=== PATIENT | male | born 1955 | race African-American/Black ===

== ENCOUNTER 2017-10-03 08:20 | Emergency (ER) | payer OTHER ==
[~2017-10-03] VITALS: Ht 198.1 cm; Wt 111.1 kg
[~2017-10-03 08:20] MED LIST: ASPI-630 PO; ATOR20TA58 PO; FURO20TA3 PO; METO-239 PO; NIFE30TA17 PO; PSEU120T58 PO
--- NOTE | 2017-10-03 08:42 | PHYS DOC ---
Past History Past Medical History: Hypertension Past Surgical History: Other Smoking: Cigar Alcohol Use: Occasionally Drug Use: None Adult General Chief Complaint Chief Complaint: ELBOW PROBLEM HPI HPI 62-year-old male presents with left elbow pain. The patient was walking down his stairs at home last night when he caught his shoe and fell down 4 stairs. He landed onto a carpeted floor. He did not hit his head. He did not lose consciousness. Since that time he has had pain in his left anterior elbow. He was concerned that there might be something broken so he came to the ED. He is able to move the elbow. He has pain with flexion past 90 both passive and active. He denies any lacerations or swelling. He is unsure how his arm was involved in the accident. He has no other complaints. Review of Systems Review of Systems Constitutional: Denies fever or chills [] Eyes: Denies change in visual acuity, redness, or eye pain [] HENT: Denies nasal congestion or sore throat [] Respiratory: Denies cough or shortness of breath [] Cardiovascular: No additional information not addressed in HPI [] GI: Denies abdominal pain, nausea, vomiting, bloody stools or diarrhea [] : Denies dysuria or hematuria [] Musculoskeletal: left elbow pain [] Integument: Denies rash or skin lesions [] Neurologic: Denies headache, focal weakness or sensory changes [] Endocrine: Denies polyuria or polydipsia [] All other systems were reviewed and found to be within normal limits, except as documented in this note. Allergies Allergies Allergies Coded Allergies Type Severity Reaction Last Updated Verified Sulfa (Sulfonamide Antibiotics) Allergy Intermediate Unknown 10/03/17 Yes Physical Exam Physical Exam Constitutional: Well developed, well nourished, no acute distress, non-toxic appearance. [] HENT: Normocephalic, atraumatic, bilateral external ears normal, oropharynx moist, no oral exudates, nose normal. [] Eyes: PERRLA, EOMI, conjunctiva normal, no discharge. [] Neck: Normal range of motion, no tenderness, supple, no stridor. [] Cardiovascular:Heart rate regular rhythm, no murmur [] Lungs & Thorax: Bilateral breath sounds clear to auscultation [] Abdomen: Bowel sounds normal, soft, no tenderness, no masses, no pulsatile masses. [] Skin: Warm, dry, no erythema, no rash. [] Back: No tenderness, no CVA tenderness. [] Extremities: Left elbow no swelling, no abrasions or lacerations, pain with flexion greater than 90. Supination pronation normal. [] Neurologic: Alert and oriented X 3, normal motor function, normal sensory function, no focal deficits noted. [] Psychologic: Affect normal, judgement normal, mood normal. [] Current Patient Data Vital Signs Vital Signs Date Time Temp Pulse Resp B/P (MAP) Pulse Ox O2 Delivery O2 Flow Rate FiO2 10/03/17 08:27 98.4 102 16 97 Room Air EKG EKG [] Radiology/Procedures Radiology/Procedures INDICATION: Fall last night with persistent pain. TECHNIQUE: 3 views of the left elbow are submitted for review. No comparison is available. FINDINGS: There is a nondisplaced fracture of the radial head which extends intra-articular. There is displacement of fat pads compatible with effusion. There is soft tissue swelling. There is no dislocation. There is an olecranon spur. IMPRESSION: Acute traumatic nondisplaced fracture of the radial head extends intra-articular. Joint effusion. Electronically signed by: Roosevelt Hernandez MD (10/03/2017 8:50 AM) [id number][] Course & Med Decision Making Course & Med Decision Making Pertinent Labs and Imaging studies reviewed. (See chart for details) The patient has a nondisplaced, closed radial head fracture that involves the joint. His pain is well controlled without medication. We will put him in a sling and give him a referral to orthopedics. He will make an appointment with orthopedics later today if possible. [] Dragon Disclaimer Dragon Disclaimer This electronic medical record was generated, in whole or in part, using a voice recognition dictation system. Departure Departure: Referrals: KOLE STRONG (PCP) RENATA NOLAN DO October 03, 2017 08:42
--- NOTE | 2017-10-03 08:53 | RAD ---
INDICATION: Fall last night with persistent pain. TECHNIQUE: 3 views of the left elbow are submitted for review. No comparison is available. FINDINGS: There is a nondisplaced fracture of the radial head which extends intra-articular. There is displacement of fat pads compatible with effusion. There is soft tissue swelling. There is no dislocation. There is an olecranon spur. IMPRESSION: Acute traumatic nondisplaced fracture of the radial head extends intra-articular. Joint effusion. Electronically signed by: Roosevelt Hernandez MD (10/03/2017 8:50 AM) [id number]
[2017-10-03 09:25] VITALS: BP 151/100
== END 2017-10-03 09:25 | disposition home or self-care (01) ==
LOC: ER 08:20
DX: S52.125A Nondisplaced fracture of head of left radius, initial encounter for closed fracture (principal); I10 Essential (primary) hypertension; F17.210 Nicotine dependence, cigarettes, uncomplicated; Z88.2 Allergy status to sulfonamides; W10.8XXA Fall (on) (from) other stairs and steps, initial encounter; Y93.01 Activity, walking, marching and hiking; Y99.8 Other external cause status; Y92.89 Other specified places as the place of occurrence of the external cause
CPT/HCPCS: 73080; 99284

== ENCOUNTER 2017-11-24 13:49 | Emergency (ER) | payer OTHER ==
[~2017-11-24] VITALS: Ht 198.1 cm; Wt 118.4 kg
[2017-11-24] MEDS ORDERED: PRED50TA PO (14:46)
[2017-11-24] MEDS ORDERED: CLIN300C8 PO (14:46)
--- NOTE | 2017-11-24 14:46 | PHYS DOC ---
Past History Past Medical History: Hypertension Past Surgical History: Other Smoking: Cigar Alcohol Use: Occasionally Drug Use: None Adult General Chief Complaint Chief Complaint: ELBOW PROBLEM HPI HPI Patient is a very pleasant 62-year-old male who presents for evaluation of left elbow swelling and pain. He fractured his radial head on 10/03/17 and had x-ray imaging performed here. He is in the [employer] and is flying to [place] tomorrow and would like the elbow to be drained. He states his orthopedic surgeon is unavailable today. The swelling is over the olecranon process. He is able to bend the elbow without any discomfort. He denies fevers or chills. Review of Systems Review of Systems Constitutional: Denies fever or chills [] Eyes: Denies change in visual acuity, redness, or eye pain [] HENT: Denies nasal congestion or sore throat [] Respiratory: Denies cough or shortness of breath [] Cardiovascular: No additional information not addressed in HPI [] GI: Denies abdominal pain, nausea, vomiting, bloody stools or diarrhea [] : Denies dysuria or hematuria [] Musculoskeletal: Denies back pain or joint pain [] Left elbow pain/swelling Integument: Denies rash or skin lesions [] Neurologic: Denies headache, focal weakness or sensory changes [] Endocrine: Denies polyuria or polydipsia [] All other systems were reviewed and found to be within normal limits, except as documented in this note. Allergies Allergies Allergies Coded Allergies Type Severity Reaction Last Updated Verified Sulfa (Sulfonamide Antibiotics) Allergy Intermediate Unknown 10/03/17 Yes Physical Exam Physical Exam Constitutional: Well developed, well nourished, no acute distress, non-toxic appearance. [] HENT: Normocephalic, atraumatic, bilateral external ears normal, oropharynx moist, no oral exudates, nose normal. [] Eyes: PERRLA, EOMI, conjunctiva normal, no discharge. [] Neck: Normal range of motion, no tenderness, supple, no stridor. [] Cardiovascular:Heart rate regular rhythm, no murmur [] Lungs & Thorax: Bilateral breath sounds clear to auscultation [] Abdomen: Bowel sounds normal, soft, no tenderness, no masses, no pulsatile masses. [] Skin: Warm, dry, no erythema, no rash. [] Back: No tenderness, no CVA tenderness. [] Extremities: No tenderness, no cyanosis, no clubbing, ROM intact, no edema. [] + left elbow swelling over olecranon suspicious for bursitis, palpation of olecranon reproduces pain complaint Neurologic: Alert and oriented X 3, normal motor function, normal sensory function, no focal deficits noted. [] Psychologic: Affect normal, judgement normal, mood normal. [] Current Patient Data Vital Signs Vital Signs Date Time Temp Pulse Resp B/P (MAP) Pulse Ox O2 Delivery O2 Flow Rate FiO2 11/24/17 13:49 98.7 80 18 97 Room Air EKG EKG [] Radiology/Procedures Radiology/Procedures [] Course & Med Decision Making Course & Med Decision Making Pertinent Labs and Imaging studies reviewed. (See chart for details) @1430 - the patient tolerated the procedure well. He will go home with a prescription for antibiotics and steroids. He is to follow-up with his orthopedic surgeon in the next few days. Advised the patient keep the dressing with pressure applied to the left elbow. Dragon Disclaimer Dragon Disclaimer This electronic medical record was generated, in whole or in part, using a voice recognition dictation system. Arthrocentesis Indication: left elbow swelling/bursitis Consent: verbal Procedure: The left elbow was positioned appropriately and the landmarks were identified. Local anesthesia was injected (0.75% bupivicaine). The area was then prepped and draped in the usual sterile fashion. A needle was then introduced into the joint space and pulled back at which point sanguinous fluid was withdrawn. A dressing was then applied to the site. The patient tolerated the procedure well Complications: none Departure Departure: Impression: Primary Impression: Left elbow pain Additional Impression: Bursitis of left elbow Disposition: HOME, SELF-CARE Condition: STABLE Referrals: KOLE STRONG (PCP) Patient Instructions: Bursitis, Elbow Effusion-Brief Additional Instructions: Take the medications as prescribed. [facility] to [facility] Department immediately for new or worsening symptoms. Follow up with your orthopedic surgeon in the next 2-3 days. Scripts Clindamycin Hcl (CLINDAMYCIN HCL) 300 Mg Capsule 1 CAP PO TID, #21 CAP Prov: PANTERA JEFFREY DO 11/24/17 Prednisone (PREDNISONE) 50 Mg Tablet 1 TAB PO DAILY for 5 Days, #5 TAB Prov: PANTERA JEFFREY DO 11/24/17 Problem Qualifiers PANTERA JEFFREY DO Nov 24, 2017 14:46
[2017-11-24 15:00] VITALS: BP 131/101
== END 2017-11-24 15:00 | disposition home or self-care (01) ==
LOC: ER 13:49
DX: M71.522 Other bursitis, not elsewhere classified, left elbow (principal); I10 Essential (primary) hypertension; F17.210 Nicotine dependence, cigarettes, uncomplicated; Z88.2 Allergy status to sulfonamides
CPT/HCPCS: 20605; 99284-25

== ENCOUNTER 2018-02-26 17:37 | Emergency (ER) | payer OTHER ==
[~2018-02-26] VITALS: Ht 198.1 cm; Wt 117.9 kg
[~2018-02-26 17:37] MED LIST changes: +CLIN300C8 PO; +PRED50TA PO
[2018-02-26] MEDS ORDERED: LIDOCAINE 2% 20 ML VIAL. ONE (18:07)
[2018-02-26] MEDS ORDERED: CEPH-264 PO (18:49)
--- NOTE | 2018-02-26 18:50 | PHYS DOC ---
Past History Past Medical History: Hypertension Past Surgical History: Other Smoking: Cigar Alcohol Use: None Drug Use: None Adult General Chief Complaint Chief Complaint: LACERATION/AVULSION HPI HPI Patient is a 62 year old male who presents with complaint of laceration to the right thumb. Patient states that it happened this morning. Patient states he was reaching underneath his bed when his thumb caught the metal frame, lacerating the dorsum of his right thumb. Patient denies any loss of function. Patient cleaned the wound at home, then decided to come to the emergency department later this evening for concern that the wound may need repair. Patient is up-to-date on his tetanus immunization. Denies any other symptoms. Review of Systems Review of Systems Constitutional: Denies fever or chills [] Eyes: Denies change in visual acuity, redness, or eye pain [] HENT: Denies nasal congestion or sore throat [] Respiratory: Denies cough or shortness of breath [] Cardiovascular: Denies chest pain or edema[] GI: Denies abdominal pain, nausea, vomiting, bloody stools or diarrhea [] : Denies dysuria or hematuria [] Musculoskeletal: Denies back pain or joint pain [] Integument: Laceration of right thumb[] Neurologic: Denies headache, focal weakness or sensory changes [] Endocrine: Denies polyuria or polydipsia [] All other systems were reviewed and found to be within normal limits, except as documented in this note. Current Medications Current Medications Current Medications Medications (Trade) Dose Ordered Sig/Anatoly Start Time Stop Time Status Last Admin Dose Admin Lidocaine HCl 20 ml STK-MED ONCE 02/26/18 18:07 02/26/18 18:08 DC Allergies Allergies Allergies Coded Allergies Type Severity Reaction Last Updated Verified Sulfa (Sulfonamide Antibiotics) Allergy Intermediate Unknown 10/03/17 Yes Physical Exam Physical Exam Constitutional: Alert, afebrile, no acute distress. [] HENT: Normocephalic, atraumatic, bilateral external ears normal, oropharynx moist, no oral exudates, nose normal. [] Eyes: PERRLA, EOMI, conjunctiva normal, no discharge. [] Neck: Normal range of motion, no tenderness, supple, no stridor. [] Cardiovascular:Heart rate regular rhythm, no murmur [] Lungs & Thorax: Bilateral breath sounds clear to auscultation [] Abdomen: Bowel sounds normal, soft, no tenderness, no masses, no pulsatile masses. [] Skin: Warm, dry, 3.5 linear laceration overlying the dorsum of proximal right thumb, exposed aerial or tissue, no visualized tendon injury. [] Back: No tenderness, no CVA tenderness. [] Extremities: No tenderness, no cyanosis, no clubbing, ROM intact, no edema. [] Neurologic: Alert and oriented X 3, normal motor function, normal sensory function, no focal deficits noted. [] Current Patient Data Vital Signs Vital Signs Date Time Temp Pulse Resp B/P (MAP) Pulse Ox O2 Delivery O2 Flow Rate FiO2 02/26/18 18:02 91 20 95 Room Air Lab Results Not performed EKG EKG Not performed[] Radiology/Procedures Radiology/Procedures Indication: Right thumb laceration Procedure: The patient was placed in the appropriate position and anesthesia around the laceration was achieved with injection of lidocaine 2% without epinephrine. The area was then copiously irrigated with normal saline and prepped with Betadine. The laceration was closed using 4-0 Ethilon simple interrupted sutures. The wound area was then dressed with tube gauze. Total repaired wound length: 3.5 cm. Other Items: Total suture count: 7 The patient tolerated the procedure without difficulty. Complications: None.[] Course & Med Decision Making Course & Med Decision Making Pertinent Labs and Imaging studies reviewed. (See chart for details) Laceration was repaired as outlined in the procedure note. Patient discharged with a 5 day prescription of Keflex for infection prophylaxis. Advised follow- up in 10-14 days for removal of sutures and return to emergency department for any worsening symptoms. Patient was understanding and agreement with treatment plan. Dragon Disclaimer Dragon Disclaimer This electronic medical record was generated, in whole or in part, using a voice recognition dictation system. Departure Departure: Impression: Primary Impression: Laceration of thumb Disposition: 01 HOME, SELF-CARE Condition: IMPROVED Referrals: PCP,UNKNOWN (PCP) Patient Instructions: Laceration Care, Adult Additional Instructions: Follow-up with your primary doctor in 10-14 days for removal of sutures. Return to the emergency department for any worsening symptoms. Scripts Cephalexin (KEFLEX) 500 Mg Capsule 1 CAP PO BID, #10 CAP Prov: ОЛЕГ OROZCO MD 02/26/18 Problem Qualifiers Primary Impression: Laceration of thumb Encounter type: initial encounter Damage to nail status: without damage Foreign body presence: without foreign body Laterality: right Qualified Codes: S61.011A - Laceration without foreign body of right thumb without damage to nail, initial encounter ОЛЕГ OROZCO MD Feb 26, 2018 18:50
[2018-02-26 18:59] VITALS: BP 142/104
[2018-02-26] MEDS ORDERED: CEPHALEXIN 250 MG CAPSULE PO ONE (19:00)
== END 2018-02-26 19:01 | disposition home or self-care (01) ==
LOC: ER 17:37
DX: S61.011A Laceration without foreign body of right thumb without damage to nail, initial encounter (principal); I10 Essential (primary) hypertension; F17.210 Nicotine dependence, cigarettes, uncomplicated; Z88.2 Allergy status to sulfonamides; W26.8XXA Contact with other sharp object(s), not elsewhere classified, initial encounter; Y93.89 Activity, other specified; Y92.89 Other specified places as the place of occurrence of the external cause; Y99.8 Other external cause status
CPT/HCPCS: 12002; 99283